=== PATIENT | male | born 2000 | race Hispanic/Latino ===

== ENCOUNTER 2021-06-27 07:23 | Emergency (ER) | payer SELFPAY ==
--- NOTE | 2021-06-27 07:52 | ER ---
Nurse's Notes [facility] Name: Moses Goel Age: 20 yrs Sex: Male : 2000 Arrival Date: 06/27/2021 Time: 07:28 Bed Waiting Private MD: Diagnosis: Acute serous otitis media, left ear Presentation: 06/27 07:44 Chief complaint: Patient states: Left ear fullness x 3-4 days, pain started last night, jl7 minor nasal congestion. Coronavirus screen: At this time, the client does not indicate any symptoms associated with coronavirus-19. Ebola Screen: No symptoms or risks identified at this time. Initial Sepsis Screen: Does the patient meet any 2 criteria? No. Patient's initial sepsis screen is negative. Does the patient have a suspected source of infection? No. Patient's initial sepsis screen is negative. Risk Assessment: Do you want to hurt yourself or someone else? Patient reports no desire to harm self or others. Onset of symptoms was June 26, 2021. 07:44 Method Of Arrival: Ambulatory jl7 07:44 Acuity: KATHERINE 3 jl7 Triage Assessment: 07:46 General: Appears in no apparent distress. uncomfortable, Behavior is calm, cooperative, jl7 appropriate for age. Pain: Complains of pain in left ear Pain currently is 2 out of 10 on a pain scale. EENT: Reports nasal congestion pain in left ear. Historical: - Allergies: 07:46 No Known Allergies; jl7 - Home Meds: 07:46 None [Active]; jl7 - PMHx: 07:46 Seizure; jl7 - PSHx: 07:46 None; jl7 - Immunization history:: Client reports having NOT received the Covid vaccine. - Social history:: Smoking status: Patient denies any tobacco usage or history of. - Family history:: not pertinent. Screenin:47 Abuse screen: Denies threats or abuse. Denies injuries from another. Nutritional jl7 screening: No deficits noted. Tuberculosis screening: No symptoms or risk factors identified. Fall Risk None identified. Assessment: 07:47 Reassessment: Dr. Gates in triage assessing pt. jl7 Vital Signs: 07:44 BP 127 / 93; Pulse 77; Resp 17; Temp 98.5; Pulse Ox 98% ; Weight 117.93 kg; Height 5 jl7 ft. 9 in. (175.26 cm); Pain 2/10; 07:44 Body Mass Index 38.39 (117.93 kg, 175.26 cm) jl7 ED Course: 07:28 Patient arrived in ED. am2 07:45 Triage completed. jl7 07:46 Arm band placed on right wrist. jl7 07:47 Patient has correct armband on for positive identification. jl7 07:47 No provider procedures requiring assistance completed. Patient did not have IV access jl7 during this emergency room visit. 07:49 Elvin Gates MD is Attending Physician. ma2 07:58 Snehal Yen RN is Primary Nurse. jl7 Administered Medications: No medications were administered Outcome: 07:51 Discharge ordered by . ma2 08:02 Discharged to home ambulatory. jl7 08:02 Condition: stable 08:02 Discharge instructions given to patient, Instructed on discharge instructions, follow up and referral plans. medication usage, Demonstrated understanding of instructions, follow-up care, medications, Prescriptions given X 2. 08:02 Patient left the ED. jl7 Signatures: Snehal Yen RN RN jl7 Carol Das am2 Elvin Gates MD MD de2
--- NOTE | 2021-06-27 07:52 | EDPHYS ---
Physician Documentation [facility] Name: Moses Goel Age: 20 yrs Sex: Male : 2000 Arrival Date: 06/27/2021 Time: 07:28 Bed Waiting Private MD: ED Physician Elvin Gates HPI: 06/27 07:49 This 20 yrs old Male presents to ER via Ambulatory with complaints of Ear Pain.ma2 07:49 The patient presents with pain. Associated signs and symptoms: Pertinent negatives: ma2 lightheadedness, sinus trouble, sore throat. Severity of symptoms: At their worst the symptoms were mild. [age]-year-old healthy male, with left ear pain for 3 days, mild constant, denies sore throat or cough. No fever.. Historical: - Allergies: 07:46 No Known Allergies; jl7 - Home Meds: 07:46 None [Active]; jl7 - PMHx: 07:46 Seizure; jl7 - PSHx: 07:46 None; jl7 - Immunization history:: Client reports having NOT received the Covid vaccine. - Social history:: Smoking status: Patient denies any tobacco usage or history of. - Family history:: not pertinent. ROS: 07:49 Constitutional: Negative for fever, chills, and weight loss. ma2 07:49 All other systems are negative. Exam: 07:49 Constitutional: This is a well developed, well nourished patient who is awake, alert, ma2 and in no acute distress. Head/Face: Normocephalic, atraumatic. Eyes: Pupils equal round and reactive to light, extra-ocular motions intact. Lids and lashes normal. Conjunctiva and sclera are non-icteric and not injected. Cornea within normal limits. Periorbital areas with no swelling, redness, or edema. ENT: Left TM is red, otherwise nares patent. No nasal discharge, no septal abnormalities noted. Tympanic membranes are normal and external auditory canals are clear. Oropharynx with no redness, swelling, or masses, exudates, or evidence of obstruction, uvula midline. Mucous membranes moist. Chest/axilla: Normal chest wall appearance and motion. Nontender with no deformity. No lesions are appreciated. Cardiovascular: Regular rate and rhythm with a normal S1 and S2. No gallops, murmurs, or rubs. Normal PMI, no JVD. No pulse deficits. Respiratory: Lungs have equal breath sounds bilaterally, clear to auscultation and percussion. No rales, rhonchi or wheezes noted. No increased work of breathing, no retractions or nasal flaring. Abdomen/GI: Soft, non-tender, with normal bowel sounds. No distension or tympany. No guarding or rebound. No evidence of tenderness throughout. MS/ Extremity: Pulses equal, no cyanosis. Neurovascular intact. Full, normal range of motion. Neuro: Awake and alert, GCS 15, oriented to person, place, time, and situation. Cranial nerves II-XII grossly intact. Motor strength 5/5 in all extremities. Sensory grossly intact. Cerebellar exam normal. Normal gait. Vital Signs: 07:44 BP 127 / 93; Pulse 77; Resp 17; Temp 98.5; Pulse Ox 98% ; Weight 117.93 kg; Height 5 jl7 ft. 9 in. (175.26 cm); Pain 2/10; 07:44 Body Mass Index 38.39 (117.93 kg, 175.26 cm) jl7 MDM: 07:49 Differential diagnosis: otitis media, acute otalgia, cerumen impaction, serotympanum. ma2 Data reviewed: vital signs, nurses notes. Counseling: I had a detailed discussion with the patient and/or guardian regarding: the historical points, exam findings, and any diagnostic results supporting the discharge/admit diagnosis, the presence of at least one elevated blood pressure reading (>120/80) during this emergency department visit, the need for outpatient follow up. Response to treatment: the patient's symptoms have markedly improved after treatment. 07:51 Patient medically screened. ma2 Administered Medications: No medications were administered Disposition Summary: 06/27/21 07:51 Discharge Ordered Location: Home ma2 Condition: Stable ma2 Diagnosis - Acute serous otitis media, left ear ma2 Followup: ma2 - With: Private Physician - When: Tomorrow - Reason: If symptoms return Discharge Instructions: - Discharge Summary Sheet ma2 - Otitis Media, Adult ma2 Forms: - Medication Reconciliation Form ma2 - Work release form jl7 - Thank You Letter ma2 - Antibiotic Education ma2 - Prescription Opioid Use ma2 Prescriptions: - Augmentin 875-125 mg Oral Tablet - take 1 tablet by ORAL route every 12 hours for 10 days; 20 tablet; Refills: 0, ma2 Product Selection Permitted - Diclofenac Sodium 75 mg Oral Tablet Sustained Release - take 1 tablet by ORAL route 2 times per day; 30 tablet; Refills: 0, Product ma2 Selection Permitted Signatures: Snehal Yen RN RN jl7 Elvin Gates MD MD ma2
[2021-06-27 08:07] VITALS: BP 127/93; TEMP 98.5; O2SAT 98
== END 2021-06-27 08:02 | disposition home or self-care (01) ==
LOC: ER 07:23
DX: H65.02 Acute serous otitis media, left ear (principal)
CPT/HCPCS: 99282

== ENCOUNTER 2021-09-02 08:43 | Emergency (ER) | payer SELFPAY ==
--- OUTSIDE RECORDS SUMMARY | 2021-09-02 08:45 | XMS REPORT | Continuity of Care Document ---
:2000 Author Organization [facility] t Address [address] [place] [address] Care Team Providers Name Role Phone Unavailable Unavailable Unavailable Problems This patient has no known problems. Allergies, Adverse Reactions, Alerts This patient has no known allergies or adverse reactions. Medications This patient has no known medications. Procedures This patient has no known procedures. Results This patient has no known results.
--- NOTE | 2021-09-02 10:49 | RAD REPORT ---
EXAM DESCRIPTION: CT - Head Brain Wo Cont - 09/02/2021 10:23 am CLINICAL HISTORY: Headache COMPARISON: None. TECHNIQUE: Computed axial tomography of the head was obtained. IV contrast was not requested. All CT scans are performed using dose optimization technique as appropriate and may include automated exposure control or mA/KV adjustment according to patient size. FINDINGS: An intracranial bleed is not seen . The ventricles are normal in caliber. No significant hypodense areas within the brain visualized No extra-axial fluid collection is noted. Fluid within the sinuses/ mastoids is not seen. IMPRESSION: No acute intracranial abnormality is seen. If patient's symptoms persist MRI of the bra in would be recommended.
[2021-09-02] MEDS ORDERED: KETOROLAC 30 MG/ML INJ ONE (12:17)
[2021-09-02] MEDS ORDERED: METOCLOPRAMIDE 10 MG/2mL INJ ONE (12:17)
[2021-09-02] MEDS ORDERED: DIPHENHYDRAMINE 25 MG TAB/CAP ONE (12:17)
--- NOTE | 2021-09-02 12:59 | EDPHYS ---
Physician Documentation [facility] Name: Moses Goel Age: 21 yrs Sex: Male : 2000 Arrival Date: 09/02/2021 Time: 08:45 Bed 10 Private MD: ED Physician Anupam Barrientos HPI: 09/02 10:06 This 21 yrs old Male presents to ER via Unassigned with complaints of Migraine.pm1 10:06 The patient complains of pain to the forehead. The patient describes the headache as pm1 aching, constant. Onset: The symptoms/episode began/occurred 3 day(s) ago. Associated signs and symptoms: Pertinent negatives: fever, nausea, vomiting. Severity of symptoms: in the emergency department the pain is unchanged. Headache History: Other at age 13 years, attributes due to glasses. Has not worn them in 3 years. The symptoms are alleviated by nothing. the symptoms are aggravated by nothing. The patient has experienced a previous episode, at age [age] years old. The patient has not recently seen a physician. Historical: - Allergies: 10:16 No Known Allergies; iw - PMHx: 10:16 Seizure; iw ROS: 11:12 Constitutional: Negative for fever, chills, and weight loss, Cardiovascular: Negative pm1 for chest pain, palpitations, and edema, Respiratory: Negative for shortness of breath, cough, wheezing, and pleuritic chest pain, Abdomen/GI: Negative for abdominal pain, nausea, vomiting, diarrhea, and constipation, MS/Extremity: Negative for injury and deformity, Skin: Negative for injury, rash, and discoloration. 11:12 Eyes: Negative for injury, pain, redness, and discharge, ENT: Negative for injury, pain, and discharge, Neck: Negative for injury, pain, and swelling. 11:12 Neuro: Positive for headache, Negative for numbness, tingling, weakness. 11:12 All other systems are negative. Exam: 11:12 Constitutional: This is a well developed, well nourished patient who is awake, alert, pm1 and in no acute distress. Head/Face: Normocephalic, atraumatic. 11:12 Back: No spinal tenderness. No costovertebral tenderness. Full range of motion. Skin: Warm, dry with normal turgor. Normal color with no rashes, no lesions, and no evidence of cellulitis. MS/ Extremity: Pulses equal, no cyanosis. Neurovascular intact. Full, normal range of motion. 11:12 Eyes: Exam is negative for acute changes, Periorbital structures: appear normal, Pupils: no acute changes, Extraocular movements: no acute changes, Conjunctiva: no acute changes, no injection. 11:12 ENT: Exam is negative for acute changes, Mouth: no acute changes, Lips: normal, moist, Oral mucosa: normal, pink and intact, moist, Posterior pharynx: no acute changes, Voice: no acute changes. 11:12 Neck: Exam negative for acute changes, External neck: is normal, ROM/movement: no acute changes. 11:12 Cardiovascular: Exam negative for acute changes, Rate: normal, Rhythm: regular, Pulses: no pulse deficits are appreciated, Heart sounds: normal. 11:12 Respiratory: Exam negative for acute changes, respiratory distress, shortness of breath, Breath sounds: are clear throughout. 11:12 Abdomen/GI: Exam negative for acute changes, Inspection: abdomen appears normal, Palpation: abdomen is soft and non-tender, in all quadrants. 11:12 Neuro: Exam negative for acute changes, Orientation: is normal, Mentation: is normal, Motor: is normal, moves all fours. Vital Signs: 13:30 BP 148 / 100; Pulse 75; Resp 16; Temp 98.0; Pulse Ox 99% on R/A; iw MDM: 10:11 Patient medically screened. pm1 12:58 Counseling: I had a detailed discussion with the patient and/or guardian regarding: the pm1 historical points, exam findings, and any diagnostic results supporting the discharge/admit diagnosis, lab results, radiology results, the need for outpatient follow up, to return to the emergency department if symptoms worsen or persist or if there are any questions or concerns that arise at home. 13:04 ED course: Patient's headache resolved and he would like to go back to work tomorrow. pm1 13:04 Data reviewed: vital signs. Data interpreted: Pulse oximetry: on room air is 99 %. pm1 Interpretation: normal. 09/02 10:11 Order name: CT Head Brain wo Cont; Complete Time: 10:52 pm1 Administered Medications: 12:17 Drug: Benadryl (diphenhydrAMINE) 25 mg Route: PO; iw 12:17 Drug: Reglan (metoCLOPramide) 10 mg Route: IM; Site: right deltoid; iw 12:17 Drug: Ketorolac 60 mg Route: IM; Site: left deltoid; iw Disposition: 16:02 Co-signature as Attending Physician, Anupam Barrientos MD. rn Disposition Summary: 09/02/21 12:58 Discharge Ordered Location: Home pm1 Problem: new pm1 Symptoms: have improved pm1 Condition: Stable pm1 Diagnosis - Headache pm1 Followup: pm1 - With: Emergency Department - When: As needed - Reason: Worsening of condition Followup: pm1 - With: Private Physician - When: 2 - 3 days - Reason: Recheck today's complaints, Continuance of care, Re-evaluation by your physician Discharge Instructions: - Discharge Summary Sheet pm1 - General Headache Without Cause pm1 Forms: - Medication Reconciliation Form pm1 - Work release form pm1 - Thank You Letter pm1 - Antibiotic Education pm1 - Prescription Opioid Use pm1 Signatures: Dispatcher [employer] Ree Brock RN RN iw Nieto, Roman, MD MD rn Marinas, Patrick, ABDIEL MARINE STEAM FITTER HELPER pm1
--- NOTE | 2021-09-02 12:59 | ER ---
Nurse's Notes [facility] Name: Moses Goel Age: 21 yrs Sex: Male : 2000 Arrival Date: 09/02/2021 Time: 08:45 Bed 10 Private MD: Diagnosis: Headache Presentation: 09/02 10:16 Chief complaint: Patient states: headache since Thursday. Coronavirus screen: Client iw presents with at least one sign or symptom that may indicate coronavirus-19. Ebola Screen: Patient negative for fever greater than or equal to 101.5 degrees Fahrenheit, and additional compatible Ebola Virus Disease symptoms Patient denies exposure to infectious person. Patient denies travel to an Ebola-affected area in the 21 days before illness onset. No symptoms or risks identified at this time. Initial Sepsis Screen: Does the patient meet any 2 criteria? No. Patient's initial sepsis screen is negative. Does the patient have a suspected source of infection? No. Patient's initial sepsis screen is negative. Risk Assessment: Do you want to hurt yourself or someone else? Patient reports no desire to harm self or others. Onset of symptoms was September 02, 2021. 10:16 Method Of Arrival: Ambulatory iw 10:16 Acuity: KATHERINE 3 iw Historical: - Allergies: 10:16 No Known Allergies; iw - PMHx: 10:16 Seizure; iw Vital Signs: 13:30 BP 148 / 100; Pulse 75; Resp 16; Temp 98.0; Pulse Ox 99% on R/A; iw ED Course: 08:45 Patient arrived in ED. rg4 10:06 Tejinder Ruiz NP is PHCP. pm1 10:06 Anupam Barrientos MD is Attending Physician. pm1 10:16 Triage completed. iw 10:16 Arm band placed on. iw 10:25 CT Head Brain wo Cont In Process Unspecified. EDMS 12:06 Ree Rodriguez, RN is Primary Nurse. iw Administered Medications: 12:17 Drug: Benadryl (diphenhydrAMINE) 25 mg Route: PO; iw 12:17 Drug: Reglan (metoCLOPramide) 10 mg Route: IM; Site: right deltoid; iw 12:17 Drug: Ketorolac 60 mg Route: IM; Site: left deltoid; iw Outcome: 12:58 Discharge ordered by MD. pm1 13:30 Patient left the ED. iw Signatures: Dispatcher [employer] Ree Brock RN RN Tejinder Moss, VENEER STOCK GRADER VENEER STOCK GRADER pm1 Roxanne [email or web address]
[2021-09-02 13:34] VITALS: BP 148/100; TEMP 98; O2SAT 99
== END 2021-09-02 13:30 | disposition home or self-care (01) ==
LOC: ER 08:43
DX: R51.9 Headache, unspecified (principal)
CPT/HCPCS: 70450; 96372; 99283; J2765

== ENCOUNTER 2022-01-21 07:04 | Emergency (ER) | payer SELFPAY ==
--- NOTE | 2022-01-21 08:15 | EDPHYS ---
Physician Documentation [facility] Name: Moses Jackman Age: 21 yrs Sex: Male : 2000 Arrival Date: 01/21/2022 Time: 07:06 Bed IW1 Private MD: ED Physician Anupam Barrientos HPI: 01/21 07:25 This 21 yrs old Male presents to ER via Ambulatory with complaints of Sore rn Throat. 07:25 The patient presents with sore throat. The patient describes throat pain as raw. Onset: rn The symptoms/episode began/occurred 2 day(s) ago. Severity of symptoms: At their worst the symptoms were mild, in the emergency department the symptoms are unchanged. Modifying factors: The symptoms are alleviated by nothing, the symptoms are aggravated by nothing, Patient's oral intake status: good. Associated signs and symptoms: Pertinent positives: chills, cough, fever, rhinorrhea, Pertinent negatives diarrhea, vomiting. The patient has not experienced similar symptoms in the past. The patient has not recently seen a physician. Pt reports sore throat for a couple of days, assoc with runny nose/cough/subjective fever/chills. Reports family sick as well and thinks they were diagnosed with flu.. Historical: - Allergies: 07:20 No Known Allergies; jl7 - Home Meds: 07:20 None [Active]; jl7 - PMHx: 07:20 Seizure; jl7 - PSHx: 07:20 None; jl7 - Immunization history:: Client reports having NOT received the Covid vaccine. - Social history:: Smoking status: Patient reports the use of cigarette tobacco products, denies chronic smoking, but will smoke occasionally. - Family history:: not pertinent. - Hospitalizations: : No recent hospitalization is reported. ROS: 07:25 Constitutional: Negative for weight loss Eyes: Negative for injury, pain, redness, and yarn winder, ENT: + runny nose and sore throat Neck: Negative for injury, pain, and swelling, Cardiovascular: Negative for chest pain, palpitations, and edema, Respiratory: + cough Abdomen/GI: Negative for abdominal pain, nausea, vomiting, diarrhea, and constipation, MS/Extremity: Negative for injury and deformity, Skin: Negative for injury, rash, and discoloration, Neuro: Negative for headache, weakness, numbness, tingling, and seizure. Exam: 07:25 Constitutional: This is a well developed, well nourished patient who is awake, alert, rn and in no acute distress. Head/Face: Normocephalic, atraumatic. Eyes: Periorbital areas with no swelling, redness, or edema. ENT: Mild pharyngeal erythema, no stridor, MMM Neck: Trachea midline, no thyromegaly or masses palpated, and no cervical lymphadenopathy. Supple, full range of motion without nuchal rigidity, or vertebral point tenderness. No Meningismus. Cardiovascular: Regular rate and rhythm. No pulse deficits. Respiratory: No increased work of breathing, no retractions or nasal flaring. Skin: Warm, dry MS/ Extremity: Pulses equal, no cyanosis. Neuro: Awake and alert, GCS 15 Vital Signs: 07:19 BP 137 / 93; Pulse 92; Resp 17; Temp 98.9; Pulse Ox 96% ; Weight 101.15 kg; Height 5 jl7 ft. 9 in. (175.26 cm); Pain 9/10; 08:30 BP 145 / 93; Pulse 75; Resp 15; Pulse Ox 98% ; jl7 07:19 Body Mass Index 32.93 (101.15 kg, 175.26 cm) jl7 MDM: 07:08 Patient medically screened. rn 08:14 Differential diagnosis: group A strep tonsillitis, influenza, pharyngitis. Data rn reviewed: vital signs, nurses notes, lab test result(s), and as a result, I will discharge patient. Counseling: I had a detailed discussion with the patient and/or guardian regarding: the historical points, exam findings, and any diagnostic results supporting the discharge/admit diagnosis, lab results, the need for outpatient follow up, to return to the emergency department if symptoms worsen or persist or if there are any questions or concerns that arise at home. Special discussion: I discussed with the patient/guardian in detail that at this point there is no indication for admission to the hospital. It is understood, however, that if the symptoms persist or worsen the patient needs to return immediately for re-evaluation. 01/21 07:20 Order name: Flu; Complete Time: 08:14 rn 01/21 07:20 Order name: Strep; Complete Time: 08:14 rn Administered Medications: No medications were administered Disposition Summary: 01/21/22 08:15 Discharge Ordered Location: Home rn Problem: new rn Symptoms: have improved rn Condition: Stable rn Diagnosis - Streptococcal pharyngitis rn Followup: rn - With: Private Physician - When: As needed - Reason: Recheck today's complaints, Re-evaluation by your physician Discharge Instructions: - Discharge Summary Sheet rn - Pharyngitis rn - Strep Throat, Adult rn Forms: - Medication Reconciliation Form rn - Thank You Letter rn - Antibiotic real estate attorney - Prescription Opioid Use rn - Work release form jl7 Prescriptions: - Augmentin 875-125 mg Oral Tablet - take 1 tablet by ORAL route every 12 hours for 10 days; 20 tablet; Refills: 0, rn Product Selection Permitted Signatures: Dispatcher [employer] Anupam Osullivan MD MD rn Leal, Jahala, RN RN jl7
--- NOTE | 2022-01-21 08:15 | ER ---
Nurse's Notes [facility] Name: Moses Jackman Age: 21 yrs Sex: Male : 2000 Arrival Date: 01/21/2022 Time: 07:06 Bed IW1 Private MD: Diagnosis: Streptococcal pharyngitis Presentation: 01/21 07:19 Chief complaint: Patient states: Sore throat since Thursday, denies fever, reports jl7 chills. Coronavirus screen: At this time, the client does not indicate any symptoms associated with coronavirus-19. Ebola Screen: No symptoms or risks identified at this time. Initial Sepsis Screen: Does the patient meet any 2 criteria? No. Patient's initial sepsis screen is negative. Does the patient have a suspected source of infection? No. Patient's initial sepsis screen is negative. Risk Assessment: Do you want to hurt yourself or someone else? Patient reports no desire to harm self or others. Onset of symptoms was January 18, 2022. Care prior to arrival: None. 07:19 Method Of Arrival: Ambulatory jl7 07:19 Acuity: KATHERINE 4 jl7 Triage Assessment: 07:20 General: Appears in no apparent distress. uncomfortable, Behavior is calm, cooperative, jl7 appropriate for age. Pain: Complains of pain in sore throat Pain currently is 9 out of 10 on a pain scale. EENT: Throat is clear. Historical: - Allergies: 07:20 No Known Allergies; jl7 - Home Meds: 07:20 None [Active]; jl7 - PMHx: 07:20 Seizure; jl7 - PSHx: 07:20 None; jl7 - Immunization history:: Client reports having NOT received the Covid vaccine. - Social history:: Smoking status: Patient reports the use of cigarette tobacco products, denies chronic smoking, but will smoke occasionally. - Family history:: not pertinent. - Hospitalizations: : No recent hospitalization is reported. Screenin:00 Abuse screen: Denies threats or abuse. Denies injuries from another. Nutritional jl7 screening: No deficits noted. Tuberculosis screening: No symptoms or risk factors identified. Fall Risk None identified. Vital Signs: 07:19 BP 137 / 93; Pulse 92; Resp 17; Temp 98.9; Pulse Ox 96% ; Weight 101.15 kg; Height 5 jl7 ft. 9 in. (175.26 cm); Pain 9/10; 08:30 BP 145 / 93; Pulse 75; Resp 15; Pulse Ox 98% ; jl7 07:19 Body Mass Index 32.93 (101.15 kg, 175.26 cm) 7 ED Course: 07:06 Patient arrived in ED. rg4 07:08 Anupam Barrientos MD is Attending Physician. rn 07:20 Triage completed. jl7 07:20 Arm band placed on right wrist. jl7 07:21 Snehal Yen, RN is Primary Nurse. jl7 07:21 Flu and/or RSV swab sent to lab. Strep swab sent to lab. jl7 08:00 Patient has correct armband on for positive identification. jl7 08:31 No provider procedures requiring assistance completed. Patient did not have IV access jl7 during this emergency room visit. Administered Medications: No medications were administered Medication: 08:00 VIS not applicable for this client. jl7 Outcome: 08:15 Discharge ordered by . rn 08:31 Discharged to home ambulatory. jl7 08:31 Condition: stable 08:31 Discharge instructions given to patient, Instructed on discharge instructions, follow up and referral plans. medication usage, Demonstrated understanding of instructions, follow-up care, medications, Prescriptions given X 1. 08:31 Patient left the ED. jl7 Signatures: Anupam Barrientos MD MD rn Garcia, Rubi 4 Snehal Yen RN RN James
== END 2022-01-21 08:31 | disposition home or self-care (01) ==
LOC: ER 07:04
DX: J02.0 Streptococcal pharyngitis (principal); F17.210 Nicotine dependence, cigarettes, uncomplicated
CPT/HCPCS: 87081; 87804; 99283

== ENCOUNTER 2023-07-10 15:52 | Emergency (ER) | payer SELFPAY ==
--- NOTE | 2023-07-10 17:25 | RAD REPORT ---
EXAM DESCRIPTION: RAD - Hand Right 3 View - 07/10/2023 4:52 pm CLINICAL HISTORY: swelling COMPARISON: No comparisons FINDINGS/IMPRESSION: No acute fracture. No malalignment. No significant focal degenerative changes.
[2023-07-10 17:37] LABS: Absolute Lymphocytes (CBC) 1.4 K/uL (0.7-4.9); Absolute Monocytes 0.6 K/uL (0.1-1.3); Absolute Neutrophil 5.6 K/uL (1.8-8.0); Basophils % 0.4 % (0-1.3); Eosinophils % 0.5 % (0-4.4); Hematocrit 42.1 % (39.6-49.0); Hemoglobin 13.9 g/dL (13.6-17.9); Lymphocytes % 17.8 % (15.3-44.8); MCH 27.9 pg (27.0-35.0); MCV 84.6 fL (80-100); Monocytes % 7.8 % (3.3-12.3); Neutrophils % 73.5 % (41.7-73.7); Platelets 239 thou/uL (152-406); RBC Red Blood Cell Count 4.98 M/uL (4.33-5.43); Red Cell Distribution Width 14.6 % (12.1-15.2)
[2023-07-10 17:41] LABS: PT Prothrombin Time 11.1 SECONDS (9.5-12.5); PTT, Activated Partial Thromb 31.6 SECONDS (24.3-36.9); Protime INR 1.01
[2023-07-10 18:08] LABS: Anion Gap 7.8 mEq/L (5.0-15.0); C-Reactive Protein 8.62 mg/L (<3.00); Potassium 3.8 mEq/L (3.5-5.1)
[2023-07-10] MEDS ORDERED: KETOROLAC 30 MG/ML INJ ONE (19:51)
[2023-07-10] MEDS ORDERED: SMZ./TMP. 800/160 MG TABLET ONE (19:51)
[2023-07-10] MEDS ORDERED: CLINDAMYCIN 900MG/D5W 900 MG/50 ML IVPB IV ONE (19:51)
--- NOTE | 2023-07-10 20:21 | EDPHYS ---
Physician Documentation [facility] Name: Moses Jackman Age: 22 yrs Sex: Male : 2000 Arrival Date: 07/10/2023 Time: 15:52 Bed 10 Private MD: ED Physician Piedad Lamb HPI: 07/09 16:30 This 22 yrs old Male presents to ER via Ambulatory with complaints of Finger cp Swelling. 16:30 The patient or guardian reports Patient is a 22-year-old male who presents to emergency cp department with complaints of swelling pain to right index finger. Patient reports several days ago his right index finger was stuck by the appendage of a shrimp and since he has had increased swelling and pain. Historical: - Allergies: 16:08 No Known Allergies; aa5 - PMHx: 16:08 Seizure; aa5 - PSHx: 16:08 None; aa5 - Immunization history:: Last tetanus immunization: unknown. - Infectious Disease History:: Denies. - Social history:: Smoking status: Patient denies any tobacco usage or history of. ROS: 16:35 MS/extremity: Positive for pain, swelling, tenderness, of the right index finger, cp 16:35 Constitutional: Negative for body aches, chills, fever, poor PO intake, cp 16:35 Skin: Negative for rash, 16:35 All other systems are negative, Exam: 16:40 Constitutional: The patient appears in no acute distress, alert, awake, non-toxic, well cp developed, well nourished, 16:40 Head/Face: Normocephalic, atraumatic. cp 16:40 Chest/axilla: Inspection: normal, 16:40 Cardiovascular: Rate: normal, Rhythm: regular, 16:40 Respiratory: the patient does not display signs of respiratory distress, Respirations: normal, no use of accessory muscles, no retractions, labored breathing, is not present, Breath sounds: are clear throughout, no decreased breath sounds, no stridor, no wheezing, 16:40 Abdomen/GI: Inspection: abdomen appears normal, 16:40 Musculoskeletal/extremity: Extremities: noted in the right index finger: Middle and proximal phalanx appear with circumferential swelling and tenderness, mild erythema. Digit is held in mild flexion but patient has full extension, Vital Signs: 16:07 BP 138 / 65; Pulse 62; Resp 18 S; Temp 97.4(O); Pulse Ox 100% on R/A; Weight 95.25 kg aa5 (R); Height 5 ft. 8 in. (R); 18:00 BP 127 / 69; Pulse 64; Resp 16; Pulse Ox 100% on R/A; ph 20:27 BP 115 / 72; Pulse 66; Resp 16; Temp 98.2(TE); Pulse Ox 99% on R/A; Pain 6/10; tl4 16:07 Body Mass Index 31.93 (95.25 kg, 172.72 cm) aa5 20:27 Pain Scale: Adult tl4 MDM: 16:07 Patient medically screened. 18:00 Differential diagnosis: cellulitis, abscess, flexor tenosynovitis, sepsis. 20:20 Data reviewed: vital signs, nurses notes, lab test result(s). 20:20 Consideration of Admission/Observation Escalation of care including admission/observation considered. 20:20 I considered the following discharge prescriptions or medication management in the emergency department Medications were administered in the Emergency Department. See MAR. Independent interpretation of the following test(s) in the Emergency Department X-Ray: My interpretation is images of right hand negative for fracture. Counseling: I had a detailed discussion with the patient and/or guardian regarding the historical points, exam findings, and any diagnostic results supporting the discharge/admit diagnosis, lab results, radiology results, the need for outpatient follow up, a family practitioner, to return to the emergency department if symptoms worsen or persist or if there are any questions or concerns that arise at home. ED course: VSS. Labs, xrays reviewed. Low suspicion for tenosynovitis. will treat outpatient with oral antibiotics and patient instructed to return to ED worsening symptoms. 07/09 17:31 Order name: Lactate w/ 2H reflex if indic. [facility] 07/09 17:31 Order name: CBC with Automated Diff EDWV 07/09 17:31 Order name: Protime (+INR) [facility] 07/09 17:31 Order name: PTT, Activated Partial Thromb [facility] 07/09 17:36 Order name: Blood Culture [facility] 07/09 17:36 Order name: Blood Culture [facility] 07/09 17:41 Order name: Protime (+INR); Complete Time: 19:24 [facility] 07/09 17:41 Order name: PTT, Activated Partial Thromb; Complete Time: 19:24 EDMS 07/09 17:45 Order name: Basic Metabolic Panel EDMS 07/09 17:45 Order name: C-Reactive Protein EDMS 07/09 17:46 Order name: CBC with Automated Diff; Complete Time: 19:24 EDMS 07/09 19:25 Interpretation: Reviewed. cp 07/09 18:09 Order name: Basic Metabolic Panel; Complete Time: 19:24 EDMS 07/09 18:09 Order name: C-Reactive Protein; Complete Time: 19:24 EDMS 07/09 19:24 Interpretation: Abnormal. cp 07/09 18:16 Order name: Lactate w/ 2H reflex if indic.; Complete Time: 19:24 EDMS 07/09 16:27 Order name: Hand Right 3 View EDMS 07/09 17:26 Order name: RAD; Complete Time: 19:24 EDMS 07/09 19:25 Interpretation: Report reviewed. cp 07/09 16:21 Order name: Accucheck; Complete Time: 17:50 cp 07/09 16:21 Order name: Cardiac monitoring; Complete Time: 17:50 cp 07/09 16:21 Order name: IV Saline Lock - Large Bore; Complete Time: 17:50 cp 07/09 16:21 Order name: Labs collected and sent; Complete Time: 17:21 cp 07/09 16:21 Order name: O2 Per Protocol; Complete Time: 17:50 cp 07/09 16:21 Order name: O2 Sat Monitoring; Complete Time: 17:50 cp 07/09 16:21 Order name: Vital Signs; Complete Time: 17:50 cp Administered Medications: 20:09 Drug: Ketorolac IVP 15 mg IVP once Route: IVP; Site: right antecubital; tl4 20:25 Follow up: Response: No adverse reaction; Pain is decreased tl4 20:10 Drug: Clindamycin IVPB 900 mg IVPB once over 30 mins; (mix in 50 mL) Route: IVPB; tl4 Infused Over: 30 mins; Site: right antecubital; Delivery: Primary tubing; 20:25 Follow up: Response: No adverse reaction; IV Status: Completed infusion; IV Intake: [id number] 20:10 Drug: Trimethoprim-Sulfamethoxazole PO (160 mg-800 mg (DS) 2 tabs PO once Route: PO; tl4 20:25 Follow up: Response: No adverse reaction tl4 Disposition Summary: 07/10/23 20:20 Discharge Ordered Notes: Location: Home cp Problem: new cp Symptoms: have improved cp Condition: Stable cp Diagnosis - Cellulitis of right finger - right index cp Followup: cp - With: Private Physician - When: 2 - 3 days - Reason: Recheck today's complaints Discharge Instructions: - Discharge Summary Sheet cp - Cellulitis, Adult cp Forms: - Medication Reconciliation Form cp - Antibiotic Education cp - Prescription Opioid Use cp - Patient Portal Instructions cp - Leadership Thank You Letter cp - Work release form tl4 Prescriptions: - Clindamycin HCl 300 mg Oral Capsule - take 1 capsule ORAL route every 6 hours for 10 days; 40 capsule; Refills: 0, cp Product Selection Permitted - Ibuprofen 800 mg Oral Tablet - take 1 tablet ORAL route every 8 hours As needed take with food; 30 tablet; cp Refills: 0, Product Selection Permitted - Bactrim DS 800-160 mg Oral Tablet - take 1 tablet ORAL route every 12 hours for 10 days; 20 tablet; Refills: 0, cp Product Selection Permitted Signatures: Dispatcher [employer] EDMS Jaye Rueda RN RN aa5 Savage Webster PA PA cp Eliceo Chen RN RN tl4 Corrections: (The following items were deleted from the chart) 16:22 16:21 Hand Right 3 View+RAD.RAD.BRZ ordered. EDMS EDMS 16:22 16:22 BLOOD CULTURE*+BA.LAB.BRZ ordered. EDMS EDMS 16:22 16:22 CBC+H.LAB.BRZ ordered. EDMS EDMS 16:22 16:22 LACTATE+C.LAB.BRZ ordered. EDMS EDMS 16:22 16:22 PROTIME (+INR)+COAG.LAB.BRZ ordered. EDMS EDMS 16:22 16:22 PTT, ACTIVATED+COAG.LAB.BRZ ordered. EDMS EDMS 16:22 16:22 BASIC METABOLIC PANEL+C.LAB.BRZ ordered. EDMS EDMS 16:24 16:24 C-REACTIVE PROTEIN+C.LAB.BRZ ordered. EDMS EDMS
--- NOTE | 2023-07-10 20:21 | ER ---
Nurse's Notes [facility] Name: Moses Jackman Age: 22 yrs Sex: Male : 2000 Arrival Date: 07/10/2023 Time: 15:52 Bed 10 Private MD: Diagnosis: Cellulitis of right finger-right index Presentation: 07/09 16:07 Chief complaint: Patient states: right index finger pain and swelling. Coronavirus aa5 screen: At this time, the client does not indicate any symptoms associated with coronavirus-19. Ebola Screen: Patient denies travel to an Ebola-affected area in the 21 days before illness onset. Initial Sepsis Screen: Does the patient meet any 2 criteria? No. Patient's initial sepsis screen is negative. Does the patient have a suspected source of infection? No. Patient's initial sepsis screen is negative. Risk Assessment: Do you want to hurt yourself or someone else? Patient reports no desire to harm self or others. Onset of symptoms was July 2023. 16:07 Acuity: KATHERINE 4 aa5 16:07 Method Of Arrival: Ambulatory aa5 Historical: - Allergies: 16:08 No Known Allergies; aa5 - PMHx: 16:08 Seizure; aa5 - PSHx: 16:08 None; aa5 - Immunization history:: Last tetanus immunization: unknown. - Infectious Disease History:: Denies. - Social history:: Smoking status: Patient denies any tobacco usage or history of. Screenin:15 [facility] ED Fall Risk Assessment (Adult) History of falling in the last 3 months, ph including since admission No falls in past 3 months (0 pts) Confusion or Disorientation No (0 pts) Intoxicated or Sedated No (0 pts) Impaired Gait No (0 pts) Mobility Assist Device Used No (0 pt) Altered Elimination No (0 pt) Score/Fall Risk Level 0 - 2 = Low Risk Oriented to surroundings, Maintained a safe environment, Hourly rounding (assess needs \T\ fall precautionary measures) done. Abuse screen: Denies threats or abuse. Denies injuries from another. Nutritional screening: No deficits noted. Tuberculosis screening: No symptoms or risk factors identified. Assessment: 16:55 General: Appears in no apparent distress. comfortable, Behavior is calm, cooperative, ph appropriate for age. Pain: Complains of pain in dorsal aspect of distal phalanx of right index finger, dorsal aspect of middle phalanx of right index finger and dorsal aspect of proximal phalanx of right index finger. Neuro: Level of Consciousness is awake, alert, obeys commands, Oriented to person, place, time, situation. Respiratory: Airway is patent Respiratory effort is even, unlabored, Respiratory pattern is regular, symmetrical. Derm: Skin is pink, warm \T\ dry. Musculoskeletal: Swelling present in dorsal aspect of distal phalanx of right index finger, dorsal aspect of middle phalanx of right index finger and dorsal aspect of proximal phalanx of right index finger. 19:12 Reassessment: Patient and/or family updated on plan of care and expected duration. Pain tl4 level reassessed. Patient is alert, oriented x 3, equal unlabored respirations, skin warm/dry/pink. Pt denies any needs at this time. Will continue to monitor. 20:27 Reassessment: Patient and/or family updated on plan of care and expected duration. Pain tl4 level reassessed. Patient is alert, oriented x 3, equal unlabored respirations, skin warm/dry/pink. Vital Signs: 16:07 BP 138 / 65; Pulse 62; Resp 18 S; Temp 97.4(O); Pulse Ox 100% on R/A; Weight 95.25 kg aa5 (R); Height 5 ft. 8 in. (R); 18:00 BP 127 / 69; Pulse 64; Resp 16; Pulse Ox 100% on R/A; ph 20:27 BP 115 / 72; Pulse 66; Resp 16; Temp 98.2(TE); Pulse Ox 99% on R/A; Pain 6/10; tl4 16:07 Body Mass Index 31.93 (95.25 kg, 172.72 cm) aa5 20:27 Pain Scale: Adult tl4 ED Course: 15:53 Patient arrived in ED. rg4 16:01 Savage Webster PA is PHCP. cp 16:01 Piedad Lamb MD is Attending Physician. cp 16:07 Arm band placed on. aa5 16:08 Triage completed. aa5 16:13 Sarah Powers, RN is Primary Nurse. ph 16:14 Patient has correct armband on for positive identification. Bed in low position. Call ph light in reach. 16:54 Hand Right 3 View In Process Unspecified. EDMS 17:21 Inserted saline lock: 20 gauge in right antecubital area, using aseptic technique. [id number] Blood collected. 20:28 No provider procedures requiring assistance completed. IV discontinued, intact, tl4 bleeding controlled, No redness/swelling at site. Pressure dressing applied. 20:36 Provided Education on: ED process. tl4 Administered Medications: 20:09 Drug: Ketorolac IVP 15 mg IVP once Route: IVP; Site: right antecubital; tl4 20:25 Follow up: Response: No adverse reaction; Pain is decreased tl4 20:10 Drug: Clindamycin IVPB 900 mg IVPB once over 30 mins; (mix in 50 mL) Route: IVPB; tl4 Infused Over: 30 mins; Site: right antecubital; Delivery: Primary tubing; 20:25 Follow up: Response: No adverse reaction; IV Status: Completed infusion; IV Intake: [id number] 20:10 Drug: Trimethoprim-Sulfamethoxazole PO (160 mg-800 mg (DS) 2 tabs PO once Route: PO; tl4 20:25 Follow up: Response: No adverse reaction tl4 Medication: 16:14 VIS not applicable for this client. ph Intake: 20:25 IV: 50ml; Total: 50ml. tl4 Outcome: 20:20 Discharge ordered by MD. cp 20:28 Discharged to home ambulatory, tl4 20:28 Condition: stable 20:28 Discharge instructions given to patient, Instructed on discharge instructions, follow up and referral plans. medication usage, Demonstrated understanding of instructions, follow-up care, medications, Prescriptions given X 3, 20:36 Patient left the ED. tl4 Signatures: Dispatcher [employer] EDMS Jaye Rueda, RN RN aa5 Sarah Powers RN RN ph Savage Webster PA PA cp Garcia, Rubi Amanda Farrell jr12 Eliceo Chen RN RN tl4
[2023-07-11 14:54] VITALS: BP 115/72; TEMP 98.2; O2SAT 99
== END 2023-07-10 20:36 | disposition home or self-care (01) ==
LOC: ER 15:52
DX: L03.011 Cellulitis of right finger (principal)
CPT/HCPCS: 36415; 80048; 83605; 85025; 85610; 85730; 86140; 87040; 96374; 96375; 99284

== ENCOUNTER 2023-08-11 11:40 | Emergency (ER) | payer SELFPAY ==
--- NOTE | 2023-08-11 12:00 | EDPHYS ---
Physician Documentation [facility] Name: Moses Jackman Age: 23 yrs Sex: Male : 2000 Arrival Date: 08/11/2023 Time: 11:40 Bed IW4 Private MD: ED Physician Savage Anthony HPI: 08/10 11:56 This 23 yrs old Male presents to ER via Ambulatory with complaints of Diarrhea.mehran 11:56 The patient presents to the emergency department with diarrhea, that is intermittent. mehran Onset: The symptoms/episode began/occurred 1 day(s) ago. Possible causes: unknown. The symptoms are aggravated by nothing. The symptoms are alleviated by nothing. Associated signs and symptoms: The patient has no apparent associated signs or symptoms. Severity of symptoms: At their worst the symptoms were. The patient has not experienced similar symptoms in the past. Historical: - Allergies: 11:56 No Known Allergies; ap3 - Home Meds: 11:56 None [Active]; ap3 - PMHx: 11:56 Seizure; ap3 - PSHx: 11:56 None; ap3 - Immunization history:: Adult Immunizations up to date. - Infectious Disease History:: Denies. - Social history:: Smoking status: Patient denies any tobacco usage or history of. ROS: 11:57 Constitutional: Negative for fever, chills, and weight loss, Eyes: Negative for injury, mehran pain, redness, and discharge, ENT: Negative for injury, pain, and discharge, Neck: Negative for injury, pain, and swelling, Cardiovascular: Negative for chest pain, palpitations, and edema, Respiratory: Negative for shortness of breath, cough, wheezing, and pleuritic chest pain, Back: Negative for injury and pain, : Negative for injury, bleeding, discharge, and swelling, MS/Extremity: Negative for injury and deformity, Skin: Negative for injury, rash, and discoloration, Neuro: Negative for headache, weakness, numbness, tingling, and seizure, Psych: Negative for depression, anxiety, suicide ideation, homicidal ideation, and hallucinations, Allergy/Immunology: Negative for hives, rash, and allergies, Endocrine: Negative for neck swelling, polydipsia, polyuria, polyphagia, and marked weight changes, 11:57 Abdomen/GI: Positive for diarrhea, Exam: 11:57 Constitutional: This is a well developed, well nourished patient who is awake, alert, mehran and in no acute distress. Head/Face: Normocephalic, atraumatic. Eyes: Pupils equal round and reactive to light, extra-ocular motions intact. Lids and lashes normal. Conjunctiva and sclera are non-icteric and not injected. Cornea within normal limits. Periorbital areas with no swelling, redness, or edema. ENT: Nares patent. No nasal discharge, no septal abnormalities noted. Tympanic membranes are normal and external auditory canals are clear. Oropharynx with no redness, swelling, or masses, exudates, or evidence of obstruction, uvula midline. Mucous membranes moist. Neck: Trachea midline, no thyromegaly or masses palpated, and no cervical lymphadenopathy. Supple, full range of motion without nuchal rigidity, or vertebral point tenderness. No Meningismus. Chest/axilla: Normal chest wall appearance and motion. Nontender with no deformity. No lesions are appreciated. Cardiovascular: Regular rate and rhythm with a normal S1 and S2. No gallops, murmurs, or rubs. Normal PMI, no JVD. No pulse deficits. Respiratory: Lungs have equal breath sounds bilaterally, clear to auscultation and percussion. No rales, rhonchi or wheezes noted. No increased work of breathing, no retractions or nasal flaring. Abdomen/GI: Soft, non-tender, with normal bowel sounds. No distension or tympany. No guarding or rebound. No evidence of tenderness throughout. Back: No spinal tenderness. No costovertebral tenderness. Full range of motion. Skin: Warm, dry with normal turgor. Normal color with no rashes, no lesions, and no evidence of cellulitis. MS/ Extremity: Pulses equal, no cyanosis. Neurovascular intact. Full, normal range of motion. Neuro: Awake and alert, GCS 15, oriented to person, place, time, and situation. Cranial nerves II-XII grossly intact. Motor strength 5/5 in all extremities. Sensory grossly intact. Cerebellar exam normal. Normal gait. Psych: Awake, alert, with orientation to person, place and time. Behavior, mood, and affect are within normal limits. Vital Signs: 11:55 BP 130 / 86; Pulse 78; Resp 18; Temp 98; Pulse Ox 100% on R/A; Weight 83.91 kg; Height ap3 5 ft. 5 in. ; Pain 0/10; 11:55 Body Mass Index 30.79 (83.91 kg, 165.1 cm) ap3 11:55 Pain Scale: Adult ap3 MDM: 11:55 Patient medically screened. [facility] 11:58 Differential diagnosis: Nonspecific abd pain, gastritis, viral gastroenteritis, mehran gastroenteritis. Data reviewed: vital signs, nurses notes. Consideration of Admission/Observation Escalation of care including admission/observation considered. I considered the following discharge prescriptions or medication management in the emergency department Medications were administered in the Emergency Department. See MAR. Test considered but Not performed: Labs: NO LABS. Care significantly affected by the following chronic conditions: SEIZURES. Counseling: I had a detailed discussion with the patient and/or guardian regarding the historical points, exam findings, and any diagnostic results supporting the discharge/admit diagnosis, the need for outpatient follow up, for definitive care, a family practitioner. Administered Medications: No medications were administered Disposition Summary: 08/11/23 12:00 Discharge Ordered Notes: Location: Home [facility] Problem: new mehran Symptoms: have improved mehran Condition: Stable mehran Diagnosis - Diarrhea, unspecified mehran Followup: mehran - With: Private Physician - When: 2 - 3 days - Reason: Recheck today's complaints, Continuance of care, Re-evaluation by your physician Discharge Instructions: - Food Choices to Help Relieve Diarrhea, Adult mehran - Diarrhea, Adult mehran - Discharge Summary Sheet ap3 Forms: - Medication Reconciliation Form mehran - Antibiotic Education mehran - Prescription Opioid Use mehran - Patient Portal Instructions mehran - Leadership Thank You Letter [facility] - Work release form ap3 Signatures: Savage Anthony MD MD cha Prokisch, Amanda RN RN ap3
--- NOTE | 2023-08-11 12:00 | ER ---
Nurse's Notes [facility] Name: Moses Jackman Age: 23 yrs Sex: Male : 2000 Arrival Date: 08/11/2023 Time: 11:40 Bed IW4 Private MD: Diagnosis: Diarrhea, unspecified Presentation: 08/10 11:55 Chief complaint: Patient states: "I missed work yesterday for having diarrhea and need ap3 a work note.". Coronavirus screen: Vaccine status: Patient reports receiving the 2nd dose of the covid vaccine. Ebola Screen: No symptoms or risks identified at this time. Initial Sepsis Screen: Does the patient meet any 2 criteria? No. Patient's initial sepsis screen is negative. Does the patient have a suspected source of infection? No. Patient's initial sepsis screen is negative. Risk Assessment: Do you want to hurt yourself or someone else? Patient reports no desire to harm self or others. Onset of symptoms was August 11, 2023. 11:55 Method Of Arrival: Ambulatory ap3 11:55 Acuity: KATHERINE 5 ap3 Triage Assessment: 11:57 General: Appears in no apparent distress. Behavior is calm, cooperative. Pain: Denies ap3 pain. EENT: No signs and/or symptoms were reported regarding the EENT system. Neuro: [place] Agitation-Sedation Scale (RASS): 0 - Alert and Calm Level of Consciousness is awake, alert, obeys commands, Oriented to person, place, time, situation, Appropriate for age. Cardiovascular: Patient's skin is warm and dry. Respiratory: Airway is patent Respiratory effort is even, unlabored, Respiratory pattern is regular, symmetrical. GI: Reports diarrhea. : No signs and/or symptoms were reported regarding the genitourinary system. Derm: Skin is pink, warm \\T\\ dry. Musculoskeletal: Range of motion: intact in all extremities. Historical: - Allergies: 11:56 No Known Allergies; ap3 - Home Meds: 11:56 None [Active]; ap3 - PMHx: 11:56 Seizure; ap3 - PSHx: 11:56 None; ap3 - Immunization history:: Adult Immunizations up to date. - Infectious Disease History:: Denies. - Social history:: Smoking status: Patient denies any tobacco usage or history of. Screenin:[facility] Fall Risk Assessment (Adult) History of falling in the last 3 months, ap3 including since admission No falls in past 3 months (0 pts) Confusion or Disorientation No (0 pts) Intoxicated or Sedated No (0 pts) Impaired Gait No (0 pts) Mobility Assist Device Used No (0 pt) Altered Elimination No (0 pt) Score/Fall Risk Level 0 - 2 = Low Risk Oriented to surroundings, Maintained a safe environment, Educated pt \\T\\ family on fall prevention, incl call for assistance when getting out of bed. Abuse screen: Denies threats or abuse. Nutritional screening: No deficits noted. Tuberculosis screening: No symptoms or risk factors identified. Vital Signs: 11:55 BP 130 / 86; Pulse 78; Resp 18; Temp 98; Pulse Ox 100% on R/A; Weight 83.91 kg; Height ap3 5 ft. 5 in. ; Pain 0/10; 11:55 Body Mass Index 30.79 (83.91 kg, 165.1 cm) ap3 11:55 Pain Scale: Adult ap3 ED Course: 11:47 Patient arrived in ED. mg5 11:55 Savage Anthony MD is Attending Physician. [facility] 11:56 Triage completed. ap3 11:57 Arm band placed on. ap3 11:57 Patient has correct armband on for positive identification. Provided Education on: ap3 discharge instructions. Client placed on continuous cardiac and pulse oximetry monitoring. NIBP monitoring applied. 11:58 Carol Hamilton, RN is Primary Nurse. ap3 11:58 No provider procedures requiring assistance completed. Patient did not have IV access ap3 during this emergency room visit. Administered Medications: No medications were administered Medication: 11:58 VIS not applicable for this client. ap3 Outcome: 11:58 Discharged to home ambulatory, ap3 11:58 Condition: stable 11:58 Discharge instructions given to patient, Instructed on discharge instructions, follow up and referral plans. Demonstrated understanding of instructions, follow-up care, 12:00 Discharge ordered by . [facility] 12:02 Patient left the ED. mb9 Signatures: Savage Anthony MD MD cha Prokisch, Amanda, RN RN ap3 Dahiana Dudley RN RN mb9 Nighat Fernández 5
[2023-08-11 12:20] VITALS: BP 130/86; TEMP 98; O2SAT 100
== END 2023-08-11 12:02 | disposition home or self-care (01) ==
LOC: ER 11:40
DX: R19.7 Diarrhea, unspecified (principal)
CPT/HCPCS: 99283